=== PATIENT | male | born 1995 | race Caucasian/White ===

== ENCOUNTER 2020-03-05 15:00 | Emergency (ER) | payer BC, SELFPAY ==
[~2020-03-05] VITALS: Ht 170.2 cm; Wt 77.1 kg
[2020-03-05 15:08] VITALS: BP 127/47
[2020-03-05] MEDS ORDERED: NACL 0.9% 1,000 ML IV ONE (15:15)
--- NOTE | 2020-03-05 15:25 | NUR ---
covid-19 swab collected--
--- NOTE | 2020-03-05 15:30 | NUR ---
c/o sob with the slightest of activities when a couple of weeks pt states he is running 6min /mile. no accessory muscle use noted, full clear speech---adds he feels as he cant catch a deep inspiration denies cardiac or lung disease.
--- NOTE | 2020-03-05 15:54 | NUR ---
cxr at bedside
--- NOTE | 2020-03-05 16:36 | NUR ---
Dr. Dey is evaluating the patient at bedside.
[2020-03-05 17:15] VITALS: BP 128/71
== END 2020-03-05 17:15 | disposition home or self-care (01) ==
LOC: EEVIPCON 15:00 → MED 15:00
DX: R06.02 Shortness of breath (principal); F41.9 Anxiety disorder, unspecified; Z20.828 Contact with and (suspected) exposure to other viral communicable diseases
CPT/HCPCS: 71045; 99284; Q0092; U0003